=== PATIENT | male | born 1960 | race Caucasian/White ===

== ENCOUNTER 2022-02-15 12:46 | Emergency (ER) | payer BC ==
--- OUTSIDE RECORDS SUMMARY | 2022-02-15 12:49 | XMS REPORT | Continuity of Care Document ---
:1960 Author Organization [facility] t Address [address] [place] [address] Care Team Providers Name Role Phone Yamel Canales Attending Clinician Unavailable Problems This patient has no known problems. Allergies, Adverse Reactions, Alerts This patient has no known allergies or adverse reactions. Medications Ordered Filled Start Stop Current Ordering Indication Dosage Frequency Signature Comments Components Source Medication Medication Date Date Medication? Clinician (SIG) Name Name MetFORMIN MetFORMIN Yes Santana [address] HCl ER HCl ER [facility] Atorvastati Atorvastati Yes Santana [address] [facility] n Calcium n Calcium [facility] Calcium & Calcium & Yes Santana not [facility] Magnesium Magnesium [facility]ales defined [facility] Garlic Garlic Yes Santana as [facility] Tumersaid Tumersaid Yes Santana as [facility] Bystolic Bystolic Yes Santana [address] [facility] Lisinopril Lisinopril Yes Santana [address] [facility] Procedures This patient has no known procedures. Encounters Start End Encounter Admission Attending Care Care Encounter Source Date/Time Date/Time Type Type Clinicians Facility Department ID 2021-12-23 Outpatient [facility] [id number] [facility] 14:09:20 Santana [id number] [facility] 2021-12-23 Outpatient Canales, [facility] Santana [id number] [facility] 2021-12-23 [facility] Santana [id number] [facility] 2021-12-23 [facility] 13[facility] Santana [id number] [facility] 2021-12-[address] [facility] 13[facility]34[facility]34 [id number] [facility] 2021-12-23 [facility] 12[facility]59 Santana [id number] [facility] 2021-12-23 Outpatient Canales, [facility] 11[facility]:38 Santana [id number] [facility] 2021-09-30 2021-09-30 ambulatory [facility] [id number] [facility] 2021-07-03 2021-07-03 [facility] [id number] [facility] 2021-07-03 2021-07-03 [facility] [id number] [facility] 2021-01-26 2021-01-26 [facility] [id number] [facility] 2020-11-18 2020-11-18 [facility] [id number] [facility] 2020-11-17 2020-11-17 [facility] [id number] [facility] 2020-08-22 2020-08-22 [facility] [id number] [facility] 2020-08-21 2020-08-21 [facility] [id number] [facility]00 [facility] 2020-05-14 2020-05-14 [facility] [id number] 16[facility]30:00 16:30:00 [facility] 2020-02-13 2020-02-13 [facility] [id number] 16[facility]00:00 16:00:00 [employer] [facility] 2019-11-14 2019-11-14 [facility] [id number] 16:30:00 16:30:00 [employer] [facility] 2019-11-12 2019-11-12 [facility] [id number] 15:26:00 15:26:00 [facility] Results This patient has no known results.
--- NOTE | 2022-02-15 14:10 | RAD REPORT ---
EXAM DESCRIPTION: US - Scrotum Testicles - 02/15/2022 1:43 pm CLINICAL HISTORY: testicular pain Testicular pain and swelling COMPARISON: No comparisons FINDINGS: The right testicle 3.7 x 2.8 x 2.5 cm. No intratesticular masses or evidence of testicular torsion. The left testicle 3.4 x 2.8 x 2.7 cm. No intratesticular masses or evidence of testicular torsion. Fl ow to the left testicle appears somewhat increased relative to the right. Left epididymis is somewhat prominent in size. Complex multi-septated fluid collection left scrotal sac likely chronic hydrocele. IMPRESSION: No testicular torsion or mass findings. Mild left-sided orchitis findings are possible. Complex left scrotal hydrocele.
--- NOTE | 2022-02-15 15:07 | EDPHYS ---
Physician Documentation [facility] Name: Cabrera Clay Age: 61 yrs Sex: Male : 1960 Arrival Date: 02/15/2022 Time: 12:48 Bed 5 Private MD: [facility] ED Physician Derian Jung HPI: 02/15 13:09 This 61 yrs old Male presents to ER via Ambulatory with complaints of Fall Injury, kb Testicular Swelling. 13:10 The patient presents with scrotal pain, of the left side, with swelling, with erythema, kb swelling, tenderness. Onset: The symptoms/episode began/occurred 3 day(s) ago. Modifying factors: The symptoms are alleviated by nothing, the symptoms are aggravated by nothing. Associated signs and symptoms: The patient has no apparent associated signs or symptoms. Severity of symptoms: At their worst the symptoms were moderate, in the emergency department the symptoms are unchanged. The patient has not experienced similar symptoms in the past. The patient has not recently seen a physician. Pt reports he got up from the cough on Tuesday and felt like he may have sat on left testicle when he swung his legs to the side. States his testicle started swelling the next day and has been getting worse and worse. . Historical: - Allergies: 12:55 No Known Allergies; aa5 - PMHx: 12:55 Hypertensive disorder; Diabetes mellitus; Hypercholesterolemia; aa5 - PSHx: 12:55 tonsills; aa5 - Immunization history:: Flu vaccine is not up to date. - Social history:: Smoking status: Patient denies any tobacco usage or history of. ROS: 13:08 Constitutional: Negative for fever, chills, and weight loss. kb 13:08 : Positive for testicular pain 13:08 All other systems are negative. Exam: 13:08 Constitutional: This is a well developed, well nourished patient who is awake, alert, kb and in no acute distress. Head/Face: Normocephalic, atraumatic. ENT: Moist Mucous membranes Respiratory: Respirations even and unlabored. No increased work of breathing. Talking in full sentences Skin: Warm, dry with normal turgor. Normal color. MS/ Extremity: Pulses equal, no cyanosis. Neurovascular intact. Full, normal range of motion. Neuro: Awake and alert, GCS 15, oriented to person, place, time, and situation. Moves all extremities. Normal gait. Psych: Awake, alert, with orientation to person, place and time. Behavior, mood, and affect are within normal limits. 13:08 : Male external genitalia: erythema, that is moderate, swelling, testicle, that is moderate, that is severe, tenderness, that is moderate. Vital Signs: 12:57 BP 189 / 82; Pulse 77; Resp 18 S; Temp 97.5(TE); Pulse Ox 97% on R/A; Weight 135.17 kg aa5 (R); Height 6 ft. 0 in. (182.88 cm) (R); 14:52 BP 163 / 72; Pulse 73; Resp 18; Pulse Ox 96% ; Pain 2/10; jh6 12:57 Body Mass Index 40.42 (135.17 kg, 182.88 cm) aa5 MDM: 13:00 Patient medically screened. kb 13:08 Data reviewed: vital signs, nurses notes. Data interpreted: Pulse oximetry: on room air kb is 97 %. Interpretation: normal. 13:10 ED course: left testicle swollen, firm, and tender. Redness noted to scrotum. kb 14:46 Physician consultation: Cristofer Ortega MD was called at 14:46, voicemail left, awaiting kb callback. 15:03 Counseling: I had a detailed discussion with the patient and/or guardian regarding: the kb historical points, exam findings, and any diagnostic results supporting the discharge/admit diagnosis, radiology results, the need for outpatient follow up, a urologist, to return to the emergency department if symptoms worsen or persist or if there are any questions or concerns that arise at home. 15:04 Physician consultation: Cristofer Ortega MD was contacted at 15:04, regarding consult, kb patient's condition, and will see patient in office, recommends antibiotics and follow up in office. 02/15 13:00 Order name: US Scrotum Testicles; Complete Time: 14:13 kb 02/15 13:00 Order name: Urine Dipstick-Ancillary (obtain specimen); Complete Time: 14:52 kb Administered Medications: No medications were administered Disposition: 18:15 Co-signature as Attending Physician, Derian Jung MD I agree with the assessment and kdr plan of care. Disposition Summary: 02/15/22 15:06 Discharge Ordered Location: Home kb Condition: Stable kb Diagnosis - Hydrocele, unspecified kb - Epididymitis kb Followup: kb - With: Emergency Department - When: As needed - Reason: Worsening of condition Followup: kb - With: - When: 2 - 3 days - Reason: Recheck today's complaints Discharge Instructions: - Discharge Summary Sheet kb - Epididymitis kb - Hydrocele, Adult kb Forms: - Medication Reconciliation Form kb - Thank You Letter kb - Antibiotic Education kb - Prescription Opioid Use kb Prescriptions: - levofloxacin 500 mg Oral Tablet - take 1 tablet by ORAL route once daily for 10 days; 10 tablet; Refills: 0, kb Product Selection Permitted Signatures: Dispatcher [employer] EDMS Isabel Gao, NURSING UNIT CLERK-C NURSING UNIT CLERK-Derian Tamez MD MD kdr Calderon, Audri RN RN aa5
--- NOTE | 2022-02-15 15:07 | ER ---
Nurse's Notes [facility] Name: Cabrera Clay Age: 61 yrs Sex: Male : 1960 Arrival Date: 02/15/2022 Time: 12:48 Bed 5 Private MD: Santana Canales Diagnosis: Hydrocele, unspecified;Epididymitis Presentation: 02/15 12:54 Chief complaint: Patient states: left testicular swelling that began Tuesday with aa5 pain. Coronavirus screen: At this time, the client does not indicate any symptoms associated with coronavirus-19. Ebola Screen: No symptoms or risks identified at this time. Initial Sepsis Screen: Does the patient meet any 2 criteria? No. Patient's initial sepsis screen is negative. Does the patient have a suspected source of infection? No. Patient's initial sepsis screen is negative. Risk Assessment: Do you want to hurt yourself or someone else? Patient reports no desire to harm self or others. Onset of symptoms was January 2022. 12:54 Method Of Arrival: Ambulatory aa5 12:54 Acuity: GILMAR 3 aa5 Triage Assessment: 13:36 General: Appears in no apparent distress. Behavior is calm, cooperative. lee Historical: - Allergies: 12:55 No Known Allergies; aa5 - PMHx: 12:55 Hypertensive disorder; Diabetes mellitus; Hypercholesterolemia; aa5 - PSHx: 12:55 tonsills; aa5 - Immunization history:: Flu vaccine is not up to date. - Social history:: Smoking status: Patient denies any tobacco usage or history of. Screenin:33 Abuse screen: Denies threats or abuse. Denies injuries from another. Nutritional lee screening: No deficits noted. Tuberculosis screening: No symptoms or risk factors identified. Fall Risk None identified. Assessment: 13:33 Pain: Complains of pain in groin/ testicular pain. lee 13:35 General: Appears in no apparent distress. Behavior is calm, cooperative. jh6 13:35 Pain: Complains of pain in groin Pain currently is 5 out of 10 on a pain scale. Quality jh6 of pain is described as aching, sharp, Pain began 2-3 days ago. Is continuous, Aggravated by exercise, increased activity. : Swelling noted on scrotum. Vital Signs: 12:57 BP 189 / 82; Pulse 77; Resp 18 S; Temp 97.5(TE); Pulse Ox 97% on R/A; Weight 135.17 kg aa5 (R); Height 6 ft. 0 in. (182.88 cm) (R); 14:52 BP 163 / 72; Pulse 73; Resp 18; Pulse Ox 96% ; Pain 2/10; jh6 12:57 Body Mass Index 40.42 (135.17 kg, 182.88 cm) aa5 ED Course: 12:48 Patient arrived in ED. mr 12:48 Santana Canales DO is Private Physician. mr 12:54 Arm band placed on. aa5 12:55 Triage completed. aa5 12:59 Isabel Gao FNP-C is PHCP. kb 12:59 Derian Jung MD is Attending Physician. kb 12:59 Andre Mae PA is PHCP. [facility] 13:33 Patient has correct armband on for positive identification. Bed in low position. lee 13:33 No provider procedures requiring assistance completed. lee 13:42 US Scrotum Testicles In Process Unspecified. EDMS 14:24 Humaira Brandt, RN is Primary Nurse. [facility] 14:26 Urine collected: clean catch specimen. [facility] 15:06 Cristofer Ortega MD is Referral Physician. kb 15:14 Patient did not have IV access during this emergency room visit. lee Administered Medications: No medications were administered Outcome: 15:06 Discharge ordered by MD. kb 15:13 Discharged to home lee 15:13 Condition: good 15:13 Discharge instructions given to Prescriptions given X 1. 15:14 Patient left the ED. lee Signatures: Dispatcher [employer] EDMS Isabel Gao FNP-C AVIATION SAFETY INSPECTOR-Andre Mckeon PA PA [facility] StMarita mr OrtizRia RN RN 5 Humaira Brandt, ALISHA BRITO [facility] Jessica Batista RN RN
[2022-02-15 15:19] VITALS: TEMP 97.5
[2022-02-15 15:20] VITALS: BP 163/72; O2SAT 96
[2022-02-17 13:08] LABS: Urine Blood 3+ (Negative); Urine Glucose 3+ (Negative); Urine Protein Trace (Negative); Urine pH 5.5 (5.0-7.0)
== END 2022-02-15 15:14 | disposition home or self-care (01) ==
LOC: ER 12:46
DX: N43.3 Hydrocele, unspecified (principal); N45.1 Epididymitis; E11.9 Type 2 diabetes mellitus without complications; I10 Essential (primary) hypertension
CPT/HCPCS: 76870; 81003; 99283